=== PATIENT | female | born 1955 | race Caucasian/White ===

== ENCOUNTER 2022-12-29 19:40 | Emergency (ER) | payer OTHER ==
--- NOTE | 2022-12-29 19:57 | ERPHSYRPT ---
- History of Present Illness Time Seen by Provider: 12/29/22 19:56 Source: patient Exam Limitations: no limitations Physician History: This is a 67-year-old right-handed white female who underwent a cardiac catheterization through her right wrist radial artery. She states that this occurred approximately noon earlier today. She was observed post procedure for approximately 5-5 and half hours and there is a dressing in place overlying the right wrist entrance site. Patient was concerned because her dressing became more saturated in the last few hours. She does not have any increased pain and can move her fingers and hand well. She wanted the site evaluated Occurred: this afternoon Method of Injury: other (Postsurgical) Severity of Pain-Max: none Severity of Pain-Current: none Extremities Pain Location: wrist: right Allergies/Adverse Reactions: No Known Drug Allergies Allergy (Unverified 12/29/22 19:51) Home Medications: Amlodipine Besylate 5 mg [Norvasc 5 mg] 2.5 mg PO HS 12/29/22 [History] Apixaban [Eliquis] 5 mg PO BID 12/29/22 [History] Aspirin EC 81 mg [Ecotrin 81 mg] 81 mg PO DAILY 12/29/22 [History] Atorvastatin Calcium [Lipitor 40Mg] 40 mg PO DAILY 12/29/22 [History] Clopidogrel Bisulfate [Clopidogrel] 75 mg PO DAILY 12/29/22 [History] Gabapentin 100 mg PO TID PRN 12/29/22 [History] Lisinopril/Hydrochlorothiazide [Lisinopril-Hctz 20-25 mg Tab] 1 each PO DAILY 12/29/22 [History] Metoprolol Tartrate 25 mg [Lopressor 25MG Tab] 25 mg PO BID 12/29/22 [History] Nitroglycerin 0.4 mg Tablet [Nitrostat 0.4 MG Tablet] 0.4 mg SL UD 12/29/22 [History] PANTOPRAZOLE 40 mg Tablet [Protonix 40MG Tablet] 40 mg PO DAILY 12/29/22 [History] methocarbamoL [Methocarbamol] 750 mg PO QID PRN 12/29/22 [History] Travel Risk - International Travel Have you traveled outside of the country in past 3 weeks: No - Coronavirus Screening Are you exhibiting any of the following symptoms?: No Close contact with a COVID-19 positive Pt in past 14-21 Days: No - Review of Systems Constitutional: No Symptoms Eyes: No Symptoms Ears, Nose, & Throat: No Symptoms Respiratory: No Symptoms Cardiac: No Symptoms Abdominal/Gastrointestinal: No Symptoms Genitourinary Symptoms: No Symptoms Musculoskeletal: No Symptoms Skin: Other (Punctate entrance site volar aspect right wrist mildly saturated dressing) Neurological: No Symptoms Psychological: No Symptoms Endocrine: No Symptoms Hematologic/Lymphatic: No Symptoms Immunological/Allergic: No Symptoms All Other Systems: Reviewed and Negative - Past Medical History Pertinent Past Medical History: Yes - Past Surgical History Past Surgical History: Yes - Nursing Vital Signs Nursing Vital Signs: Initial Vital Signs Temperature 96.7 F 12/29/22 19:41 Pulse Rate 77 12/29/22 19:41 Respiratory Rate 14 12/29/22 19:41 Blood Pressure 132/100 12/29/22 19:41 O2 Sat by Pulse Oximetry 98 12/29/22 19:41 Pain Scale Pain Intensity 0 - Physical Exam General Appearance: no apparent distress, alert, anxiety Eyes, Ears, Nose, Throat Exam: normal ENT inspection, moist mucous membranes Neck Exam: normal inspection, non-tender, supple, full range of motion Cardiovascular/Respiratory Exam: chest non-tender, no respiratory distress Abdominal Exam: non-tender Back Exam: normal inspection, normal range of motion, No CVA tenderness, No vertebral tenderness Shoulder Exam: normal inspection, non-tender, no evidence of injury, normal ROM Elbow/Forearm Exam: normal inspection, non-tender, no evidence of injury, normal ROM Wrist Exam: normal ROM (The postprocedural dressing was slightly saturated with blood. We opted to remove this dressing. Underneath there is a punctate opening and a strong palpable radial pulse. There is very scant amount of very slow ooze from the site. It appears to be fairly typical. The skin is flat with mild ecc) Hand Exam: normal inspection, non-tender, no evidence of injury, normal ROM Neuro/Tendon Exam: normal sensation, normal motor functions, normal tendon functions, responds to pain, no evidence tendon injury Mental Status Exam: alert (See above), oriented x 3, cooperative Skin Exam: other SpO2 Interpretation: normal O2 Delivery: Room Air - Course Nursing assessment & vital signs reviewed: Yes - Progress Progress: improved Progress Note: 12/29/22 20:46 This patient's medical issue is 1 of low complexity. There was no need for any work-up. We remove the dressing. The wound and punctate catheter entrance site appears fairly typical in terms of its presentation post procedure. We reapplied a pressure dressing and reassured the patient. Patient is to follow- up at the actual facility where she had the procedure done if she is concerned about the dressing becoming too saturated. Clinically, she is neurovascularly intact. There is no clinical evidence of aneurysm. There is full range of motion of her right wrist and right hand and all digits of her right hand. Counseled pt/family regarding: diagnosis, need for follow-up Medical Desision Making - Independent Historian Additional History obtained from: Spouse - Diagnostic Testing Diagnostic test were ordered, analyzed, and reviewed by me: No - Risk of complications Low Risk: Low risk of morbidity from additional dx testing or treatment - Departure Departure Disposition: Home Clinical Impression: Postoperative bleeding from incision Condition: Stable Critical Care Time: No Additional Instructions: Continue the pressure dressing. May apply ice pack to the area 2-3 times a day for the next 48 hours. Follow-up with your epic interface analyst at the facility you had the procedure done if you have further concerns on this site.
[2022-12-29 20:58] VITALS: BP 122/74; PULSE 82; O2SAT 99
== END 2022-12-29 20:59 | disposition home or self-care (01) ==
LOC: ED 19:40
DX: L76.22 Postprocedural hemorrhage of skin and subcutaneous tissue following other procedure (principal); Z48.01 Encounter for change or removal of surgical wound dressing; Z79.01 Long term (current) use of anticoagulants; Z79.02 Long term (current) use of antithrombotics/antiplatelets; Z79.899 Other long term (current) drug therapy
CPT/HCPCS: 99281